=== PATIENT | female | born 1990 | race Hispanic/Latino ===

== ENCOUNTER 2018-02-14 14:49 | Emergency (ER) | payer BC ==
[2018-02-14 16:15] LABS: BASO # 0.1 K/uL (0.0-0.2); BASO % 0.8 % (0.0-2.0); EOS % 0.4 % (0.0-4.0); HEMOGLOBIN 14.2 g/dL (12.0-16.0); LYMPH # 1.9 K/uL (1.0-4.3); MEAN CELL VOLUME 92.1 fl (81.0-99.0); MEAN CORPUSCULAR HEMOGLOBIN 30.8 pg (27.0-31.0); MEAN CORPUSCULAR HGB CONC 33.5 g/dL (33.0-37.0); MEAN PLATELET VOLUME 7.8 fl (7.2-11.7); MONO # 0.4 K/uL (0.0-0.8); MONO % 5.9 % (0.0-10.0); NEUT # 4.8 K/uL (1.8-7.0); NEUT % 66.9 % (50.0-75.0); NRBC % 0.1 % (0.0-0.0); RBC 4.6 Mil/uL (3.80-5.20); RED CELL DISTRIBUTION WIDTH 13.1 % (11.5-14.5); WHITE BLOOD COUNT 7.2 K/uL (4.8-10.8)
[2018-02-14 16:27] LABS: ALB/GLOB RATIO 1.3 (1.0-2.1); ALBUMIN 4.7 g/dL (3.5-5.0); ALT/SGPT 20 U/L (9-52); AST/SGOT 27 U/L (14-36); BLOOD UREA NITROGEN 11 mg/dl (7-17); CALCIUM 9.7 mg/dL (8.4-10.2); GFR NON-AFRICAN AMERICAN > 60
[2018-02-14 16:30] LABS: SQUAMOUS EPITHIAL < 1 /hpf (0-5); URINE BACTERIA OCC (<OCC); URINE BILIRUBIN NEGATIVE (NEGATIVE); URINE BLOOD NEGATIVE (NEGATIVE); URINE CLARITY CLEAR (Clear); URINE COLOR STRAW (YELLOW); URINE GLUCOSE (UA) NEG (Normal); URINE LEUKOCYTE ESTERASE NEG Leu/uL (Negative); URINE PROTEIN NEGATIVE (NEGATIVE); URINE UROBILINOGEN 0.2-1.0 mg/dL (0.2-1.0)
[2018-02-14] MEDS ORDERED: Lactated Ringer's 1,000 ML IV ONE (16:45)
--- NOTE | 2018-02-14 16:54 | ED PDOC ---
HPI: Female Pain Time Seen by Provider: 02/14/18 15:08 Chief Complaint (Nursing): Abdominal Pain History Per: Patient Additional Complaint(s): Pt. states for the past 2-3 days she's had pelvic cramping associated with vaginal spotting present only after wiping. States she is currently 5 weeks . LMP 01/08/2018. Has not had care yet but is scheduled for her 1st visit on 02/16/2018. States this is her 1st and has not had any previous miscarriages or abortions. Denies dysuria, back pain, hematuria, fever, N/V/D, previous abdominal surgeries. Past Medical History Reviewed: Historical Data, Nursing Documentation, Vital Signs Vital Signs: Last Vital Signs Temp 98.6 F 02/14/18 15:04 Pulse 109 H 02/14/18 15:04 Resp 17 02/14/18 15:04 BP 134/82 02/14/18 15:04 Pulse Ox 100 02/14/18 15:04 - Surgical History Surgical History: No Surg Hx - Family History Family History: States: No Known Family Hx - Allergies Allergies/Adverse Reactions: Allergies Allergy/AdvReac Type Severity Reaction Status Date / Time Penicillins Allergy URTICARIA Verified 02/14/18 15:04 Review of Systems ROS Statement: Except As Marked, All Systems Reviewed And Found Negative Genitourinary Female: Positive for: Pelvic Pain Physical Exam - Physical Exam Appears: Positive for: Well, Non-toxic, No Acute Distress Skin: Positive for: Normal Color, Warm. Negative for: Rash Eye Exam: Positive for: Normal appearance Respiratory: Positive for: Normal Breath Sounds. Negative for: Accessory Muscle Use, Respiratory Distress Gastrointestinal/Abdominal: Positive for: Normal Exam, Soft. Negative for: Tenderness Back: Negative for: L CVA Tenderness, R CVA Tenderness Neurologic/Psych: Positive for: Alert, Oriented (x3) - Laboratory Results Result Diagrams: 02/14/18 16:00 02/14/18 16:00 - ECG O2 Sat by Pulse Oximetry: 100 - Progress ED Course And Treament: Labs, OB US, UA ordered. TVUS: Presumed early intrauterine gestation based on sac measurement 5.4 mm. Pt informed of results and advised to f/u with her OBGYN on (already scheduled) without fail. Also told to return to ED immediately if symptoms worsen. Disposition - Clinical Impression Clinical Impression: Threatened miscarriage in early - Patient ED Disposition Is Patient to be Admitted: No - Disposition Disposition: Routine/Home Disposition Time: 18:01 Condition: STABLE Additional Instructions: FOLLOW UP WITH YOUR OBGYN ON TUESDAY PREVIOUSLY SCHEDULED WITHOUT FAIL RETURN TO ED IMMEDIATELY IF SYMPTOMS WORSEN FLORA PAUL, thank you for letting us take care of you today. Your provider was Lay Franz MD and you were treated for 5 WEEKS,ABD PAIN. The emergency medical care you received today was directed at your acute symptoms. If you were prescribed any medication, please fill it and take as directed. It may take several days for your symptoms to resolve. Return to the Emergency Department if your symptoms worsen, do not improve, or if you have any other problems. Please contact your doctor or call one of the physicians/clinics you have been referred to that are listed on the Patient Visit Information form that is included in your discharge packet. Bring any paperwork you were given at discharge with you along with any medications you are taking to your follow up visit. Our treatment cannot replace ongoing medical care by a primary care provider outside of the emergency department. Thank you for allowing the [facility] team to be part of your care today. If you had an X-Ray or CT scan: A Radiologist will review the ED reading if any change in treatment is needed we will contact you. If you had a blood, urine, or wound culture: It will take several days for the results, if any change in treatment is needed we will contact you. If you had an STI test: It will take 48 hours for the results. Please call after 1 week if you have not heard back. Instructions: Threatened Miscarriage (DC), Bleeding With (DC) Forms: [employer] (Maltese)
--- NOTE | 2018-02-14 17:54 | US ---
Date of service: 02/14/2018 PROCEDURE: OB Pelvic Ultrasound HISTORY: pelvic pain with spotting LMP: 01/08/2018 COMPARISON: None available. FINDINGS: UTERUS: Gestational sac: Single intrauterine gestation. Sac measurement 5.4 mm. Out of range. Below threshold for calculation of reliable gestational age. Jade-gestational hemorrhage: None. Date of delivery (Ultrasound estimated) : Out of range. Below threshold for calculation of reliable gestational age. JULIETA based on LMP Uterus measures 10/15/2018. Cm. Normal in size and appearance. CERVIX: Measures 3.11 cm. Long and closed. No cervical abnormality seen. RIGHT OVARY: Measures 1.4 x 2 x 2.0 cm. No mass lesion. Normal flow. Multiple subcentimeter follicles. LEFT OVARY: Measures 2 x 3.0 x 3.4 cm. Complex cyst/mass 1.4 x 2.3 x 1.7 cm. Otherwise no solid mass. Normal flow. FREE FLUID: None. OTHER FINDINGS: None. IMPRESSION: Presumed early intrauterine gestation based on sac measurement 5.4 mm. Additional benign and/or incidental findings described above.
[2018-02-14 18:21] VITALS: BP 125/75; PULSE 87; RESP 19; TEMP 98.7
[2018-02-14 19:27] VITALS: O2SAT 100
== END 2018-02-14 18:20 | disposition home or self-care (01) ==
LOC: H.ER 14:49
DX: O20.0 Threatened abortion (principal); Z3A.01 Less than 8 weeks gestation of pregnancy; Z88.0 Allergy status to penicillin